=== PATIENT | female | born 1990 | race Two or more races ===

== ENCOUNTER 2018-04-18 00:15 | Emergency (ER) | END 2018-04-18 01:35 | disposition home or self-care (01) | DX: S42.032A Displaced fracture of lateral end of left clavicle, initial encounter for closed fracture (principal); F10.10 Alcohol abuse, uncomplicated; Y90.9 Presence of alcohol in blood, level not specified; W05.1XXA Fall from non-moving nonmotorized scooter, initial encounter; Y93.89 Activity, other specified; Y92.89 Other specified places as the place of occurrence of the external cause; Y99.8 Other external cause status ==